=== PATIENT | male | born 1960 | race Caucasian/White ===

== ENCOUNTER 2020-07-01 06:33 | Inpatient (IN) | payer OTHER ==
[~2020-07-01] VITALS: Ht 180.3 cm; Wt 165.6 kg
[~2020-07-01 06:33] MED LIST: AUGMENTIN 875-1 EACH PO
[2020-07-01 07:02] LABS: HEMOGLOBIN 14.5 gm/dl (14.0-17.5); RED BLOOD COUNT 5.16 M/UL (4.20-5.50); WHITE BLOOD COUNT 6.4 K/UL (4.5-11.0)
[2020-07-01 07:28] LABS: BUN/CREATININE RATIO 16 (0-10)
[2020-07-01] MEDS ORDERED: GLUCOTROL 10 MG10 MG PO (12:35)
[2020-07-01] MEDS ORDERED: CLARITIN10 MG PO (12:35)
[2020-07-01] MEDS ORDERED: LOPRESSOR 50 MG50 MG PO (12:35)
[2020-07-01] MEDS ORDERED: GLUCOPHAGE XR500 MG PO (12:35)
[2020-07-01] MEDS ORDERED: ELIQUIS 5 MG TAB5 MG PO (12:36)
[2020-07-01] MEDS ORDERED: VENTOLIN HFA 66.7 GM INH (12:36)
[2020-07-02 04:33] LABS: HEMOGLOBIN 15.2 gm/dl (14.0-17.5); RED BLOOD COUNT 5.38 M/UL (4.20-5.50)
[2020-07-02 04:36] LABS: WHITE BLOOD COUNT 4.3 K/UL (4.5-11.0)
[2020-07-02 04:54] LABS: BUN/CREATININE RATIO 19 (0-10)
[2020-07-03 02:36] LABS: HEMOGLOBIN 13.7 gm/dl (14.0-17.5); RED BLOOD COUNT 4.84 M/UL (4.20-5.50)
[2020-07-03 03:11] LABS: BUN/CREATININE RATIO 19 (0-10)
[2020-07-04 02:41] LABS: HEMOGLOBIN 13.2 gm/dl (14.0-17.5); RED BLOOD COUNT 4.72 M/UL (4.20-5.50); WHITE BLOOD COUNT 6.7 K/UL (4.5-11.0)
[2020-07-04 03:11] LABS: BUN/CREATININE RATIO 20 (0-10)
[2020-07-05 03:43] LABS: HEMOGLOBIN 13.8 gm/dl (14.0-17.5); RED BLOOD COUNT 4.9 M/UL (4.20-5.50); WHITE BLOOD COUNT 7.3 K/UL (4.5-11.0)
[2020-07-05 04:15] LABS: BUN/CREATININE RATIO 21 (0-10)
[2020-07-06 11:05] LABS: HEMOGLOBIN 14.1 gm/dl (14.0-17.5); RED BLOOD COUNT 5.01 M/UL (4.20-5.50); WHITE BLOOD COUNT 7.8 K/UL (4.5-11.0)
[2020-07-06 11:25] LABS: BUN/CREATININE RATIO 22 (0-10)
[2020-07-07 02:56] LABS: HEMOGLOBIN 14.2 gm/dl (14.0-17.5); RED BLOOD COUNT 5.09 M/UL (4.20-5.50)
[2020-07-07 02:59] LABS: WHITE BLOOD COUNT 10.3 K/UL (4.5-11.0)
[2020-07-07 03:16] LABS: BUN/CREATININE RATIO 29 (0-10)
[2020-07-07] MEDS ORDERED: DOXYCYCLINE HY100 M2 PO (09:08)
[2020-07-07] MEDS ORDERED: LOPRESSOR 25 MG25 MG PO (09:08)
[2020-07-07] MEDS ORDERED: DEXAMETHASONE6 MG PO (09:08)
[2020-07-07] MEDS ORDERED: IPRAT-ALBUT 0.5-3 ML NEB (09:08)
== END 2020-07-07 11:17 | disposition home or self-care (01) | DRG 177 ==
LOC: ER1 06:33 → PROG CARE 10:36 → CDU 10:36 → CCU 07-02 05:26 → PROG CARE 07-02 17:15
PROVIDERS: Family Medicine; ADMIT Internal Medicine
PROC: XW033E5 Introduction of Remdesivir Anti-infective into Peripheral Vein, Percutaneous Approach, New Technology Group 5 (ICD-10-PCS; principal; 2020-07-01)
PROC: 3E0333Z Introduction of Anti-inflammatory into Peripheral Vein, Percutaneous Approach (ICD-10-PCS; 2020-07-01)
PROC: 5A2204Z Restoration of Cardiac Rhythm, Single (ICD-10-PCS; 2020-07-01)
PROC: XW13325 Transfusion of Convalescent Plasma (Nonautologous) into Peripheral Vein, Percutaneous Approach, New Technology Group 5 (ICD-10-PCS; 2020-07-02)
PROC: B24BZZ4 Ultrasonography of Heart with Aorta, Transesophageal (ICD-10-PCS; 2020-07-02)
PROC: 8E0ZXY6 Isolation (ICD-10-PCS; 2020-07-02)
DX: U07.1 COVID-19 (principal); J12.82 Pneumonia due to coronavirus disease 2019; J96.01 Acute respiratory failure with hypoxia; J15.9 Unspecified bacterial pneumonia; J44.0 Chronic obstructive pulmonary disease with (acute) lower respiratory infection; Z68.43 Body mass index [BMI] 50.0-59.9, adult; I07.1 Rheumatic tricuspid insufficiency; I27.20 Pulmonary hypertension, unspecified; E66.01 Morbid (severe) obesity due to excess calories; I48.0 Paroxysmal atrial fibrillation; I11.9 Hypertensive heart disease without heart failure; E11.9 Type 2 diabetes mellitus without complications; E78.5 Hyperlipidemia, unspecified; R53.81 Other malaise; Z79.01 Long term (current) use of anticoagulants; Z86.711 Personal history of pulmonary embolism; Z87.891 Personal history of nicotine dependence; Z90.49 Acquired absence of other specified parts of digestive tract; Z79.4 Long term (current) use of insulin
CPT/HCPCS: ECHO; 0240U; 36415; 36600; 51702; 71045; 80053; 82550; 82553; 82803; 82962; 83605; 83874; 83880; 84439; 84443; 84484; 85025; 85027; 85610; 86140; 86900; 86901; 86927; 92961; 93005; 93306; 94640; 94660; 94664; 94760; 96374; 99285; J0696; J1100; J1335; J7030; J7050; Q9967